=== PATIENT | male | born 1960 | race Caucasian/White ===

== ENCOUNTER 2017-11-11 03:48 | Observation (INO) | payer BC, OTHER ==
[2017-11-11] VITALS (156 sets, daily range): BP systolic 135–146; BP diastolic 73–92; PULSE 102–106; TEMP 97.1–98; O2SAT 91–97
[~2017-11-11] VITALS: Ht 190 cm; Wt 191.5 kg
[~2017-11-11 03:48] MED LIST: BYDUREON INJ; BYDUREON2MG SQ; FARXIGA PO; GLUCOPHAGE XR500 M1 PO; GLUCOPHAGE500 MG/TAB PO; KLOR-CON M1515 MEQ PO; LANTUS100 U/ML SC; NO HOME MEDICATIONS; PRINIVIL2.5 MG PO; ROXICODONE 55 MG/TAB PO
[2017-11-11 04:29] LABS: BASO % 0.5 % (0.0-2.0); EOS # 0.2 (0.0-0.7); EOS % 2.8 % (0-4.0); GRAN # 4.8 (1.4-6.5); GRAN % 58.9 % (42.2-75.2); HEMATOCRIT 50.4 % (42.0-52.0); HEMOGLOBIN 17.6 g/dl (13.5-18.0); LYMPH # 2.4 (1.2-3.4); MEAN CELL VOLUME 85 fl (80.0-100.0); MEAN CORPUSCULAR HEMOGLOBIN 30 pg (27.0-31.0); MEAN CORPUSCULAR HGB CONC 35 g/dl (33.0-37.0); MEAN PLATELET VOLUME 9.9 fl (7.4-10.4); MONO # 0.6 (0.1-0.6); MONO % 7.4 % (1.7-9.3); PLATELET COUNT 217 K/mm3 (130-400); RED BLOOD COUNT 5.91 M/mm3 (4.20-5.60); REDCELL DISTRIBUTION WIDTH-CV 12.5 % (11.5-14.5)
[2017-11-11] MEDS ORDERED: LASIX 40MG TABL40 MG PO (04:32)
[2017-11-11] MEDS ORDERED: FARXIGA10 PO (04:32)
[2017-11-11] MEDS ORDERED: ASPIRIN 81M81 MG/TA2 PO (04:33)
[2017-11-11] MEDS ORDERED: LIPITOR20 MG PO (04:33)
[2017-11-11] MEDS ORDERED: BENADRYL25 M2 PO (04:34)
[2017-11-11] MEDS ORDERED: VICTOZA6 MG/ML SQ (04:34)
[2017-11-11] MEDS ORDERED: BASAGLAR K100 UNIT/1 SQ (04:34)
[2017-11-11 04:39] LABS: CREATININE, serum 0.75 mg/dL (0.66-1.25); POTASSIUM 4.1 mmol/L (3.4-5.0)
[2017-11-11] MEDS ORDERED: CRANBERRY FRUI405 MG PO (09:31)
[2017-11-11] MEDS ORDERED: GARCINIA CAMBOGIA PO (09:34)
[2017-11-11] MEDS ORDERED: BENADRYL E2.5 MG/1 M PO (09:57)
[2017-11-11] MEDS ORDERED: PEPCID 20MG TAB20 MG PO (09:57)
[2017-11-11] MEDS ORDERED: MEDROL 4MG DOSPA4 MG PO (09:58)
[2017-11-11] MEDS ORDERED: EPI-PEN JR0.5 MG/ML IM (09:59)
[2017-11-11 16:46] LABS: COMPLEMENT-C4 31 mg/dL (18-55)
== END 2017-11-11 13:21 | disposition home or self-care (01) ==
LOC: COL.ER 03:48 → ICU 06:26
PROVIDERS: Emergency Medicine
DX: K14.8 Other diseases of tongue (principal); E11.9 Type 2 diabetes mellitus without complications; G47.33 Obstructive sleep apnea (adult) (pediatric); E87.1 Hypo-osmolality and hyponatremia; R00.0 Tachycardia, unspecified; Z79.82 Long term (current) use of aspirin; Z79.4 Long term (current) use of insulin; Z88.0 Allergy status to penicillin; Z88.8 Allergy status to other drugs, medicaments and biological substances; Z83.3 Family history of diabetes mellitus
CPT/HCPCS: G0378; J0171; J2920; J2930; J7030

== ENCOUNTER 2018-01-16 17:08 | Emergency (ER) | payer BC, OTHER ==
[~2018-01-16] VITALS: Ht 190.5 cm; Wt 181.8 kg
[~2018-01-16 17:08] MED LIST changes: +ASPIRIN 81M81 MG/TA2 PO; +BASAGLAR K100 UNIT/1 SQ; +BENADRYL E2.5 MG/1 M PO; +BENADRYL25 M2 PO; +CRANBERRY FRUI405 MG PO; +EPI-PEN JR0.5 MG/ML IM; +FARXIGA10 PO; +GARCINIA CAMBOGIA PO; +LASIX 40MG TABL40 MG PO; +LIPITOR20 MG PO; +MEDROL 4MG DOSPA4 MG PO; +PEPCID 20MG TAB20 MG PO; +VICTOZA6 MG/ML SQ
[2018-01-16 17:10] VITALS: TEMP 98.8
[2018-01-16] MEDS ORDERED: DECADRON 4MG TAB4 MG PO (19:11)
[2018-01-16 19:34] VITALS: BP 146/98; PULSE 99
== END 2018-01-16 19:38 | disposition home or self-care (01) ==
LOC: COL.ER 17:08
DX: T78.3XXA Angioneurotic edema, initial encounter (principal); T78.40XA Allergy, unspecified, initial encounter; E11.9 Type 2 diabetes mellitus without complications; Z79.4 Long term (current) use of insulin; Z79.82 Long term (current) use of aspirin
CPT/HCPCS: J0171; J1200; J2930

== ENCOUNTER 2018-10-05 13:38 | Emergency (ER) | payer BC, OTHER ==
[~2018-10-05] VITALS: Ht 190.5 cm; Wt 181.8 kg
[~2018-10-05 13:38] MED LIST changes: +DECADRON 4MG TAB4 MG PO
[2018-10-05 13:46] VITALS: BP 147/92; TEMP 98.7
[2018-10-05] MEDS ORDERED: NORVASC 10MG10 MG (13:56)
[2018-10-05] MEDS ORDERED: GLUCOTROL XL10 MG (13:57)
[2018-10-05] MEDS ORDERED: CEPHALEXIN500 M1 PO (15:51)
[2018-10-05 16:00] VITALS: PULSE 94
== END 2018-10-05 16:00 | disposition home or self-care (01) ==
LOC: COL.ER 13:38
DX: S62.662A Nondisplaced fracture of distal phalanx of right middle finger, initial encounter for closed fracture (principal); S61.312A Laceration without foreign body of right middle finger with damage to nail, initial encounter; Z23 Encounter for immunization; Z88.8 Allergy status to other drugs, medicaments and biological substances; Z88.6 Allergy status to analgesic agent; E11.9 Type 2 diabetes mellitus without complications; Z79.4 Long term (current) use of insulin; Z79.82 Long term (current) use of aspirin; W26.8XXA Contact with other sharp object(s), not elsewhere classified, initial encounter; Y92.009 Unspecified place in unspecified non-institutional (private) residence as the place of occurrence of the external cause